=== PATIENT | male | born 1965 | race Caucasian/White ===

== ENCOUNTER 2019-04-19 23:29 | Emergency (ER) | payer SELFPAY ==
--- NOTE | 2019-04-20 00:27 | ED ---
GI/ HPI - HPI Summary HPI Summary: A 53 y/o male presents to [facility] with a chief complaint of swallowing a fake tooth. He says that this tooth is a temporary tooth before getting an implant but claims that the tooth has some parts with jagged edges to it. He says that there are some components of the fake tooth that keep it bound in the mouth and that he swallowed everything. He does not feel like anything is stuck in his throat. At triage he rated his pain as a 0/10 in severity. - History of Current Complaint Chief Complaint: EDGeneral Time Seen by Provider: 04/20/19 00:15 Stated Complaint: KNOCKED FRONT TOOTH OUT PER PT Hx Obtained From: Patient Onset/Duration: Started Minutes Ago, Still Present Timing: Constant, Lasting Minutes Severity: Mild Current Severity: None Pain Intensity: 0 - out of 10 Location of Pain: None Pain Characteristics: Unable to describe Associated Signs and Symptoms: Negative: Fever - Allergy/Home Medications Allergies/Adverse Reactions: Allergies Allergy/AdvReac Type Severity Reaction Status Date / Time No Known Allergies Allergy Verified 04/19/19 23:32 Home Medications: Home Medications NK [No Home Medications Reported] 04/20/19 [History Confirmed 04/20/19] PMH/Surg Hx/FS Hx/Imm Hx Sensory History: Denies: Hx Deafness EENT History: Denies: Hx Deafness Infectious Disease History: No Infectious Disease History: Denies: Traveled Outside the [place] in Last 30 Days - Family History Known Family History: Negative: Hypertension, Diabetes - Social History Alcohol Use: Rare Hx Substance Use: No Substance Use Type: Reports: None Hx Tobacco Use: No Smoking Status (MU): Never Smoked Tobacco Review of Systems Negative: Fever Positive: Other - negative: feeling like something is stuck in his throat. Positive: Other - positive: swallowed fake tooth All Other Systems Reviewed And Are Negative: Yes Physical Exam - Summary Physical Exam Summary: Appearance: Well-appearing, Well-nourished, lying in bed comfortable Skin: Warm, dry, no obvious rash Eyes: sclera anicteric, no conjunctival pallor ENT: mucous membranes moist Neck: deferred Respiratory: No signs of respiratory distress Cardiovascular: Appears well perfused, pulses are nml Abdomen: deferred Musculoskeletal: Moving all 4 extremities without obvious discomfort Neurological: Awake and alert, mentation is normal, speech is fluent and appropriate Psychiatric: affect is normal, does not appear anxious or depressed Triage Information Reviewed: Yes Vital Signs On Initial Exam: Initial Vitals Temp Pulse Resp BP Pulse Ox 99.3 F 90 18 143/90 97 04/19/19 23:32 04/19/19 23:32 04/19/19 23:32 04/19/19 23:32 04/19/19 23:32 Vital Signs Reviewed: Yes Diagnostics - Vital Signs Vital Signs Temp Pulse Resp BP Pulse Ox 04/19/19 23:32 99.3 F 90 18 143/90 97 - Laboratory Lab Statement: Any lab studies that have been ordered have been reviewed, and results considered in the medical decision making process. - Radiology abdomen x-ray Radiology Interpretation Completed By: ED Physician Summary of Radiographic Findings: no foreign body seen and no sign of obstruction. Pending official imaging report. GIGU Course/Dx - Course Course Of Treatment: A 53 y/o male presents to [facility] with a chief complaint of swallowing a fake tooth. He says that this tooth is a temporary tooth before getting an implant but claims that the tooth has some parts with jagged edges to it. The physical exam was unremarkable. Abdomen x-ray revealed no foreign body seen and no sign of obstruction. This patient will be discharged home and was instructed to return to the ED if he experiences any abdominal pain. The patient is agreeable with this plan. - Diagnoses Provider Diagnoses: Foreign body ingestion Discharge - Sign-Out/Discharge Documenting (check all that apply): Patient Departure - DC Patient Received Moderate/Deep Sedation with Procedure: No - Discharge Plan Condition: Good Disposition: HOME Patient Education Materials: Foreign Body Ingestion (ED) Referrals: No Primary Care Phys,NOPCP [Primary Care Provider] - Additional Instructions: I do not see a foreign body on the xrays, so apparently the material is not radiopaque (not visible to xrays). It would be quite unusual for this type of foreign body to cause trouble, but if it did what you would experience would be abdominal pain and perhaps vomiting. I do not expect that to happen, but if it does, come back here or go to your nearest emergency department and they would likely do a CT scan to look for signs of obstruction or perforation. Again, that would be quite unusual in this circumstance. - Billing Disposition and Condition Condition: GOOD Disposition: Home - Attestation Statements Document Initiated by Scribe: Yes Documenting Scribe: Solo Gonzales Provider For Whom Scribe is Documenting (Include Credential): Juanito Clark MD Scribe Attestation: I, Solo Gonzales, scribed for Juanito Clark MD on 04/23/19 at 0545. Scribe Documentation Reviewed: Yes Provider Attestation: The documentation as recorded by the [email or web address] accurately reflects the service I personally performed and the decisions made by me, Juanito Clark MD Status of Scribe Document: Viewed
[2019-04-20 01:02] VITALS: BP 143/98
== END 2019-04-20 01:00 | disposition home or self-care (01) ==
LOC: ED 23:29
DX: T18.9XXA Foreign body of alimentary tract, part unspecified, initial encounter (principal); X58.XXXA Exposure to other specified factors, initial encounter; Y92.9 Unspecified place or not applicable
CPT/HCPCS: 74019; 99282